=== PATIENT | female | born 1970 | race Two or more races ===

== ENCOUNTER 2016-12-17 10:30 | Inpatient (IN) | payer OTHER ==
[~2016-12-17] VITALS: Ht 157.5 cm; Wt 95.8 kg
[~2016-12-17 10:30] MED LIST: BUPIVACAINE/PF 0.5% ONE; EPINEPHRINE 1 MG/ML, 1ML ONE
[2016-12-17 11:23] VITALS: BP 163/107
[2016-12-17] MEDS ORDERED: ACET-1600 PO (11:23)
[2016-12-17] MEDS ORDERED: LISI1TAB5 PO (11:23)
[2016-12-17] MEDS ORDERED: SERT100T5 PO (11:23)
[2016-12-17] MEDS ORDERED: LACTATED RINGERS 1,000 ML IV SCH ×2 (11:28→14:10)
[2016-12-17] MEDS ORDERED: LIDOCAINE 1%, 2ML SQ PRN (11:30)
[2016-12-17 11:45] LABS: HCG UR OBC PASS
[2016-12-17 12:15] LABS: BLOOD UREA NITROGEN 18 mg/dL (7-18)
[2016-12-17 12:19] LABS: ASPARTATE AMINO TRANSFERASE 27 U/L (15-37)
[2016-12-17] MEDS ORDERED: MIDAZOLAM 1 MG/ML, 2ML ONE (12:51)
[2016-12-17] MEDS ORDERED: FENTANYL PF 100 MCG/2ML ONE ×4 (12:51→14:56)
[2016-12-17] MEDS ORDERED: ONDANSETRON 2MG/ML, 2ML ONE (13:25)
[2016-12-17] MEDS ORDERED: CEFAZOLIN 1,000 MG ONE (13:25)
[2016-12-17] MEDS ORDERED: PROPOFOL 10 MG/ML, 20ML ONE (13:25)
[2016-12-17] MEDS ORDERED: DEXAMETHASONE 4 MG/ML, 1ML ONE (13:25)
[2016-12-17] MEDS ORDERED: SUCCINYLCHOLINE 20 MG/ML, 10ML ONE (13:25)
[2016-12-17] MEDS ORDERED: HYDROmorphone 1 MG/ML, 1ML ONE (14:23)
[2016-12-17] MEDS ORDERED: OXYcodone 5 MG/5 ML ORAL.SOL UDC ONE (14:23)
[2016-12-17] MEDS: FENTANYL PF 100 MCG/2ML IV PRN ×4 (14:28→15:10)
[2016-12-17] MEDS: HYDROmorphone 1 MG/ML, 1ML IV PRN ×3 (14:28→14:45)
[2016-12-17] MEDS ORDERED: ONDANSETRON 2MG/ML, 2ML IVPush PRN ×2 (14:30)
[2016-12-17] MEDS ORDERED: hydrALAzine 20 MG/ML, 1ML IVPush PRN (14:30)
[2016-12-17] MEDS ORDERED: FAMOTIDINE 20 MG TABLET PO SCH (14:30)
[2016-12-17] MEDS ORDERED: OXYcodone 5 MG/5 ML ORAL.SOL UDC PO PRN (14:30)
[2016-12-17] MEDS ORDERED: DIPHENHYDRAMINE 25 MG CAPSULE PO PRN (14:30)
[2016-12-17] MEDS ORDERED: DIPHENHYDRAMINE 50 MG/ML, 1ML IVPush PRN (14:30)
[2016-12-17] MEDS ORDERED: ACETAMINOPHEN 325 MG TABLET PO PRN ×2 (14:30)
[2016-12-17] MEDS ORDERED: ENALAPRILAT 1.25 MG/ML, 2ML IVPush PRN (14:30)
[2016-12-17] MEDS ORDERED: ACETAMINOPHEN 650 MG SUPP PR PRN (14:30)
[2016-12-17] MEDS ORDERED: LORazepam 1MG TABLET PO PRN (14:30)
[2016-12-17] MEDS ORDERED: LORazepam 2 MG/ML, 1ML IVPush PRN (14:30)
[2016-12-17] MEDS ORDERED: morphine SULFATE 10 MG/ML, 1ML IVPush PRN (14:30)
[2016-12-17] MEDS: HYDROcodone/APAP 5/325 TABLET PO PRN ×2 (17:06→20:53)
[2016-12-17] MEDS: FAMOTIDINE 20 MG/2 ML IVPush SCH (18:07)
[2016-12-17 19:12] VITALS: BP 105/47
[2016-12-18 00:12] VITALS: BP 105/54
[2016-12-18] MEDS: HYDROcodone/APAP 5/325 TABLET PO PRN (03:50)
[2016-12-18 04:04] VITALS: BP 105/55
[2016-12-18] MEDS: FAMOTIDINE 20 MG/2 ML IVPush SCH (04:27)
[2016-12-18 05:12] LABS: HEMATOCRIT 38.9 % (34.6-47.8); HEMOGLOBIN 13.1 g/dL (11.7-16.4); WHITE BLOOD COUNT 10.9 x10^3/uL (3.4-10)
[2016-12-18 05:22] LABS: BLOOD UREA NITROGEN 16 mg/dL (7-18)
[2016-12-18 08:20] VITALS: BP 121/90
[2016-12-18] MEDS ORDERED: ENOXAPARIN 40 MG/0.4 ML SQ SCH (09:00)
[2016-12-18] MEDS ORDERED: SERTRALINE 100MG TABLET PO SCH (09:00)
[2016-12-18] MEDS ORDERED: HYDR-3240 PO (14:55)
== END 2016-12-18 15:05 | disposition home or self-care (01) | DRG 168 ==
LOC: ORIP 10:30 → 4NOR 16:25 → DCLOUNGE 12-18 14:52
PROVIDERS: ADMIT Thoracic Surgery (Cardiothoracic Vascular Surgery); ATTEND Thoracic Surgery (Cardiothoracic Vascular Surgery)
PROC: 0W9930Z Drainage of Right Pleural Cavity with Drainage Device, Percutaneous Approach (ICD-10-PCS; 2016-12-17)
PROC: 0BBF4ZX Excision of Right Lower Lung Lobe, Percutaneous Endoscopic Approach, Diagnostic (ICD-10-PCS; principal; 2016-12-17 13:30)
DX: J84.9 Interstitial pulmonary disease, unspecified (principal); I10 Essential (primary) hypertension; G47.30 Sleep apnea, unspecified; E11.9 Type 2 diabetes mellitus without complications; Z79.899 Other long term (current) drug therapy; Z83.3 Family history of diabetes mellitus; Z80.9 Family history of malignant neoplasm, unspecified
CPT/HCPCS: 36415; 71010; 80048; 80053; 81025; 85025; 87015; 87070; 87075; 87102; 87116; 87205; 87206; 88309; C1729; J0171; J0690; J1100; J1170; J1650; J2250; J2405; J2704; J3010; J3490; J0330; J7120; S0028

== ENCOUNTER 2020-03-13 14:13 | Day surgery (SDC) | payer BC ==
[~2020-03-13] VITALS: Ht 157.5 cm; Wt 98.0 kg
[~2020-03-13 14:13] MED LIST changes: +ACET-1600 PO; +BUPIVACAINE/PF 0.25% ONE; -BUPIVACAINE/PF 0.5% ONE; +HYDR-3240 PO; +LIDOCAINE/PF 1%, 30ML ONE; +LISI1TAB39 PO; +SERT100T32 PO; +morphine SULFATE/PF 1 MG/ML, 10ML ONE
[2020-03-13 14:59] VITALS: BP 156/84
[2020-03-13] MEDS ORDERED: CHLORHEXIDINE 15 ML UDC MM STA (15:00)
[2020-03-13] MEDS ORDERED: LACTATED RINGERS 1,000 ML IV SCH (15:00)
[2020-03-13 15:07] VITALS: BP 156/84
[2020-03-13] MEDS ORDERED: MEDR150D3 INJ (15:50)
[2020-03-13] MEDS ORDERED: ESCI10TA PO (15:50)
[2020-03-13] MEDS ORDERED: AMLO-211 PO (15:50)
[2020-03-13] MEDS ORDERED: OMEP-110 PO (15:50)
[2020-03-13] MEDS ORDERED: MIDAZOLAM 1 MG/ML, 2ML ONE (16:10)
[2020-03-13] MEDS ORDERED: FENTANYL PF 100 MCG/2ML ONE ×3 (16:10→17:22)
[2020-03-13] MEDS ORDERED: CEFAZOLIN 1,000 MG ONE (16:14)
[2020-03-13] MEDS ORDERED: ONDANSETRON 2MG/ML, 2ML ONE (16:14)
[2020-03-13] MEDS ORDERED: PROPOFOL 10 MG/ML, 20ML ONE (16:14)
[2020-03-13 16:24] LABS: ANION GAP 7 mmol/L (5-15); CALCIUM 9.2 mg/dL (8.5-10.1); CHLORIDE 108 mmol/L (98-107)
[2020-03-13 16:28] LABS: ALANINE AMINOTRANSFERASE 17 U/L (12-78); ALKALINE PHOSPHATASE 79 U/L (45-117); BILIRUBIN,TOTAL 0.7 mg/dL (0.2-1.0); CREATININE 0.69 mg/dL (0.55-1.02)
[2020-03-13] MEDS ORDERED: OXYcodone 5 MG/5 ML ORAL.SOL UDC ONE (17:09)
[2020-03-13] MEDS: FENTANYL PF 100 MCG/2ML IV PRN ×3 (17:10→17:30)
[2020-03-13] MEDS ORDERED: HYDROmorphone 1 MG/ML, 1ML INJ ONE (17:23)
[2020-03-13] MEDS ORDERED: OXYcodone 5 MG/5 ML ORAL.SOL UDC PO PRN (17:30)
[2020-03-13] MEDS ORDERED: HYDROmorphone 1 MG/ML, 1ML INJ IVPush PRN (17:30)
== END 2020-03-13 18:50 | disposition home or self-care (01) ==
LOC: OR 14:13
PROVIDERS: ATTEND Orthopaedic Surgery
DX: S83.231A Complex tear of medial meniscus, current injury, right knee, initial encounter (principal); M22.41 Chondromalacia patellae, right knee; M67.261 Synovial hypertrophy, not elsewhere classified, right lower leg; M65.861 Other synovitis and tenosynovitis, right lower leg; I10 Essential (primary) hypertension; E78.5 Hyperlipidemia, unspecified; K21.9 Gastro-esophageal reflux disease without esophagitis; J44.9 Chronic obstructive pulmonary disease, unspecified; E66.01 Morbid (severe) obesity due to excess calories; Z79.899 Other long term (current) drug therapy; Z20.828 Contact with and (suspected) exposure to other viral communicable diseases; Z82.61 Family history of arthritis; Z82.49 Family history of ischemic heart disease and other diseases of the circulatory system; X58.XXXA Exposure to other specified factors, initial encounter; Y93.01 Activity, walking, marching and hiking; Y92.480 Sidewalk as the place of occurrence of the external cause; Y99.8 Other external cause status
CPT/HCPCS: 29881; 36415; 80053; 87635; J0171; J0690; J1170; J2250; J2274; J2405; J2704; J3010; J7120

== ENCOUNTER → 2020-04-10 | Outpatient (CLI) | payer BC ==
[~2020-04-10] MED LIST changes: +AMLO-211 PO; -BUPIVACAINE/PF 0.25% ONE; -EPINEPHRINE 1 MG/ML, 1ML ONE; +ESCI10TA PO; -LIDOCAINE/PF 1%, 30ML ONE; +MEDR150D3 INJ; +OMEP-110 PO; -morphine SULFATE/PF 1 MG/ML, 10ML ONE
== END | disposition home or self-care (01) ==
LOC: RAD 11:43
PROVIDERS: ATTEND Internal Medicine Cardiovascular Disease
DX: Z13.6 Encounter for screening for cardiovascular disorders (principal); I25.10 Atherosclerotic heart disease of native coronary artery without angina pectoris; I10 Essential (primary) hypertension
CPT/HCPCS: 75571